=== PATIENT | female | born 1970 | race American Indian/Alaskan Native ===

== ENCOUNTER 2017-03-29 12:32 | Outpatient (CLI) | payer OTHER ==
[2017-03-29] MEDS ORDERED: PROVENTIL IH ONE (12:35)
== END 2017-03-29 12:33 | disposition home or self-care (01) ==
LOC: PF 12:32
PROVIDERS: ATTEND Internal Medicine
DX: J44.9 Chronic obstructive pulmonary disease, unspecified (principal); F32.9 Major depressive disorder, single episode, unspecified; F43.10 Post-traumatic stress disorder, unspecified; M53.80 Other specified dorsopathies, site unspecified; M79.1 Myalgia; X58.XXXD Exposure to other specified factors, subsequent encounter
CPT/HCPCS: 94060; 94640; 94729

== ENCOUNTER 2017-08-09 13:12 | Outpatient (CLI) | payer MEDICAID ==
--- NOTE | 2017-08-10 07:53 | Vascular Lab Report ---
LOWER EXTREMITY VENOUS DUPLEX: REASON FOR EXAM: Pain of the lower extremities. COMMENTS ON THE RIGHT: All veins visualized are freely compressible without evidence of internal echogenicity. Flow is spontaneous and phasic throughout. COMMENTS ON THE LEFT: All veins visualized are freely compressible without evidence of internal echogenicity. Flow is spontaneous and phasic throughout. IMPRESSION: No evidence of acute or chronic deep venous thrombosis in either lower extremity.
== END 2017-08-09 13:13 | disposition home or self-care (01) ==
LOC: VAS 13:12
PROVIDERS: ATTEND General Practice
DX: M79.604 Pain in right leg (principal)
CPT/HCPCS: 93970